=== PATIENT | male | born 1995 | race Caucasian/White ===

== ENCOUNTER 2022-07-16 14:38 | Emergency (ER) | payer OTHER ==
[~2022-07-16] VITALS: Ht 167.6 cm; Wt 77.0 kg
[2022-07-16] MEDS ORDERED: ACETAMINOPHEN 325MG TABLET PO ONE (15:15)
[2022-07-16] MEDS ORDERED: TOPUD MT (16:17)
[2022-07-16 16:18] VITALS: BP 138/99
== END 2022-07-16 16:38 | disposition home or self-care (01) ==
LOC: ER 14:38
DX: M79.641 Pain in right hand (principal); M54.50 Low back pain, unspecified; W01.0XXA Fall on same level from slipping, tripping and stumbling without subsequent striking against object, initial encounter; Y93.89 Activity, other specified; Y92.89 Other specified places as the place of occurrence of the external cause; Y99.8 Other external cause status
CPT/HCPCS: 73120; 99283